=== PATIENT | female | born 1960 | race African-American/Black ===

== ENCOUNTER 2017-02-09 22:15 | Emergency (ER) | payer OTHER ==
[2017-02-09] MEDS ORDERED: Dexamethasone 4 mg/ml Vial ONE (22:40)
== END 2017-02-09 22:45 | disposition home or self-care (01) ==
LOC: NAV ERS 22:15
DX: L23.9 Allergic contact dermatitis, unspecified cause (principal)
CPT/HCPCS: 96372; J1100

== ENCOUNTER 2017-04-03 22:06 | Emergency (ER) | payer OTHER ==
[2017-04-03] MEDS ORDERED: predniSONE 20 MG TAB ONE (22:22)
== END 2017-04-03 22:37 | disposition home or self-care (01) ==
LOC: NAV ERS 22:06
DX: L25.9 Unspecified contact dermatitis, unspecified cause (principal)
CPT/HCPCS: 99283; J7506

== ENCOUNTER 2018-11-27 20:27 | Emergency (ER) | payer OTHER | END 2018-11-27 21:15 | disposition home or self-care (01) | LOC: NAV ERS 20:27 | DX: J01.90 Acute sinusitis, unspecified (principal); L73.9 Follicular disorder, unspecified; Z79.82 Long term (current) use of aspirin | CPT/HCPCS: 99283 ==

== ENCOUNTER 2022-04-15 22:18 | Emergency (ER) | payer OTHER ==
[2022-04-15] MEDS ORDERED: Lorazepam 0.5 MG TAB ONE ×2 (22:31→23:32)
[2022-04-15 23:40] LABS: Hypochromia SLIGHT = 6-15 cells (100X) (0-5/hpf); MDiff Complete? YES; Mean Corpuscular HGB CONC 29.5 g/dL (32.0-36.0); Mean Corpuscular Hemoglobin 22.8 pg (27.0-31.0); Mean Corpuscular Volume 77.3 fL (78.0-98.0); Platelet Count 408 thou/uL (130-400); RBC Distribution Width 14.9 % (11.5-14.5); Red Blood Cell (RBC) Count 4.83 mill/uL (4.20-5.40)
[2022-04-15 23:41] LABS: %Eosinophils 2.5 % (0.0-10.0); %Lymphocytes 34.5 % (21.0-51.0); %Monocytes 10.6 % (0.0-10.0); %Neutrophils 50.9 % (42.0-75.0)
[2022-04-15 23:42] LABS: #Basophils 0.1 thou/uL (0.0-0.2); #Eosinphils 0.2 thou/uL (0.0-0.7); #Lymphocytes 3.1 thou/uL (1.20-3.40); #Neutrophils 4.6 thou/uL (1.40-6.50); %Basophils 1.5 % (0.0-1.0)
[2022-04-15 23:44] LABS: ALT (SGPT) 15 U/L (8-55); AST (SGOT) 20 U/L (5-34); Albumin 4.1 g/dL (3.5-5.0); Alkaline Phosphatase 80 U/L (40-110); Anion Gap 16 mmol/L (10-20); BUN (Urea Nitrogen) 13 mg/dL (9.8-20.1); Bilirubin, Total 0.6 mg/dL (0.2-1.2); Calc. Creatinine Clearance 0 mL/min (70-130); Calcium 9.3 mg/dL (7.8-10.44); Carbon Dioxide 23 mmol/L (22-29); Chloride 105 mmol/L (98-107); Estimated GFR 84; Globulin 3.7 g/dL (2.4-3.5); Glucose 108 mg/dL (70-105); Potassium 3.9 mmol/L (3.5-5.1); Protein, Total 7.8 g/dL (6.0-8.3); Sodium 140 mmol/L (136-145)
== END 2022-04-16 00:40 | disposition home or self-care (01) ==
LOC: NAV ERS 22:18
DX: F43.0 Acute stress reaction (principal); R42 Dizziness and giddiness
CPT/HCPCS: 36415; 80053; 84484; 85025; 93005